=== PATIENT | female | born 1960 | race African-American/Black ===

== ENCOUNTER → 2018-05-01 | Emergency (ER) | payer BC ==
[2018-05-01 03:24] VITALS: BP 136/80; PULSE 78; TEMP 98.6; BMI 44.6
--- NOTE | 2018-05-02 16:44 | EKG ---
Test Reason : Blood Pressure : / mmHG Vent. Rate : 073 BPM Atrial Rate : 073 BPM P-R Int : 170 ms QRS Dur : 082 ms QT Int : 380 ms P-R-T Axes : 028 012 035 degrees QTc Int : 418 ms NORMAL SINUS RHYTHM NORMAL ECG WHEN COMPARED WITH ECG OF 17-FEB-2015 17:07, NO SIGNIFICANT CHANGE WAS FOUND Confirmed by DILIP ALEXANDER MD ([id number]) on 05/02/2018 4:44:17 PM Referred By: Confirmed By:DILIP ALEXANDER MD
== END | disposition left against medical advice (07) ==
LOC: JER 00:35
DX: Z53.21 Procedure and treatment not carried out due to patient leaving prior to being seen by health care provider (principal)
CPT/HCPCS: 93005; 93010; 99281-25

== ENCOUNTER 2020-07-11 00:12 | Emergency (ER) | payer BC ==
[2020-07-11] MEDS ORDERED: diazePAM 5 MG TABLET PO ONE (00:19)
[2020-07-11] MEDS ORDERED: LIDOCAINE 5% TOPICAL PATCH TP ONE (00:20)
[2020-07-11] MEDS ORDERED: LIDOCAINE 5% TOPICAL PATCH ONE (00:33)
[2020-07-11] MEDS ORDERED: diazePAM 5 MG TABLET ONE (00:33)
[2020-07-11] MEDS ORDERED: KETOROLAC TROMETHAMINE 30 MG/1 ML VIAL IVPUSH ONE (00:45)
[2020-07-11 00:48] VITALS: TEMP 98; BMI 42.0
[2020-07-11 00:51] LABS: BASO % 0.5 % (0-2.0); EOS % 3.1 % (0-4.5); HEMATOCRIT 39.4 % (32.4-45.2); HEMOGLOBIN 13.4 GM/dL (10.7-15.3); LYMPH % 30.3 % (8-40); MCH 28.8 pg (25.7-33.7); MEAN CELL VOLUME 84.9 fl (80-96); MEAN PLT VOLUME 8.6 fl (7.5-11.1); MONO % 6.7 % (3.8-10.2); NEUT % 59.4 % (42.8-82.8); PLATELET COUNT 304 K/MM3 (134-434); RBC 4.64 M/mm3 (3.60-5.2); RDW 15.5 % (11.6-15.6); WHITE BLOOD COUNT 8.8 K/mm3 (4.0-10.0)
[2020-07-11] MEDS ORDERED: KETOROLAC TROMETHAMINE 30 MG/1 ML VIAL ONE (00:51)
[2020-07-11 01:01] LABS: INR 0.88 (0.83-1.09); PROTHROMBIN TIME (PATIENT) 10.7 SEC (9.7-13.0)
[2020-07-11 01:04] LABS: ACTIVATED PTT 28.5 SECONDS (25.2-36.5)
[2020-07-11 01:10] LABS: CHLORIDE 102 mmol/L (98-107); SODIUM 138 mmol/L (136-145)
[2020-07-11 01:13] LABS: ALBUMIN 3.7 g/dl (3.4-5.0); ANION GAP 7 MMOL/L (8-16); BLOOD UREA NITROGEN 20.7 mg/dL (7-18); CO2 30 mmol/L (21-32); GLUCOSE,RANDOM 120 mg/dL (74-106)
[2020-07-11] MEDS ORDERED: LACTATED RINGERS SOLUTION 1000 ML INFUS.BAG IV ONE ×2 (01:15→03:23)
[2020-07-11 01:16] LABS: CREATININE 1.5 mg/dL (0.55-1.3); SGOT/AST 33 U/L (15-37); SGPT/ALT 39 U/L (13-61)
[2020-07-11 01:18] LABS: BILIRUBIN,TOTAL 0.3 mg/dL (0.2-1); TOT PROT 7.4 g/dl (6.4-8.2)
[2020-07-11 01:19] LABS: ALK PHOS 96 U/L (45-117)
[2020-07-11 02:41] VITALS: BP 130/68; PULSE 67
[2020-07-11] MEDS ORDERED: SODIUM CHLORIDE 0.9% 500 ML INFUS.BAG IV ONE (03:22)
[2020-07-11] MEDS ORDERED: LIDOCAINE PATCH REMOVAL MC SCH (22:00)
== END 2020-07-11 05:30 | disposition home or self-care (01) ==
LOC: JER 00:12
PROC: 3E0333Z Introduction of Anti-inflammatory into Peripheral Vein, Percutaneous Approach (ICD-10-PCS; principal; 2020-07-11)
DX: M54.2 Cervicalgia (principal)
CPT/HCPCS: 36415; 70498-TC; 80053; 83735; 84484; 85025; 85610; 85730; 93005; 93010; 99285-25